=== PATIENT | male | born 1990 | race Caucasian/White ===

== ENCOUNTER → 2018-10-04 10:38 | Outpatient (CLI) | payer OTHER, SELFPAY ==
--- NOTE | 2018-10-04 10:49 | CT_ITS ---
STUDY: CT RIGHT ANKLE WITHOUT CONTRAST REASON FOR EXAM: Male, 27 years old. Displaced fracture of the right lateral malleolus. RADIATION DOSAGE (If Supplied By Facility): CTDIvol = ( 15.35 ) mGy, DLP = ( 403.65 ) mGycm TECHNIQUE: Thin section transaxial imaging of the ankle was obtained, with sagittal and coronal reconstructed images. Individualized dose optimization techniques were used for this CT. COMPARISON: None. FINDINGS: There is a nondisplaced oblique fracture of the distal fibular shaft just proximal to the lateral malleolus. There is good alignment. Normal tibiotalar articulation and talar dome. Normal talus, calcaneus, navicular and cuboid tarsal bones. Normal subtalar, talonavicular and calcaneocuboid articulations. Normal navicular-cuneiform, cuneiform tarsal bones and intercuneiform articulations. Normal tarsometatarsal articulations and visualized metatarsi. Soft tissue swelling. CT/Extremity Lower without Contra IMPRESSION: Nondisplaced oblique fracture of the distal fibula. There is good alignment. Soft tissue swelling. Electronically Signed: Emanuel Reyes, at 11:32 EDT , Service support ,
== END ==
PROVIDERS: Family Provider Family Medicine; PCP Family Medicine; Referring Provider Physician Assistant Surgical; Visit Provider Physician Assistant Surgical
DX: S82.61XA Displaced fracture of lateral malleolus of right fibula, initial encounter for closed fracture (principal)
CPT/HCPCS: 73700

== ENCOUNTER 2018-10-16 07:56 | Day surgery (SDC) | payer OTHER, SELFPAY ==
--- NOTE | 2018-10-08 08:40 | HP.PCM_ITS ---
History and Physical Patient Name: Tru Mercedes : 1990 From: JIGNESH MADDEN PA-C DATE OF SURGERY: 10/16/2018 SCHEDULED PROCEDURE: open reduction internal fixation right ankle with possible syndesmosis repair HISTORY OF PRESENT ILLNESS: Preoperative history and physical exam was performed on October 07, 2018. This is a 27-year-old male who injured his right ankle while playing softball. Patient was seen at the [facility] urgent care in which she was placed in a pneumatic foam walking boot and crutches. Patient's pain can reach as high as a 6/10. He has been requiring Tylenol and ibuprofen for pain control. Patient denies previous injury to the right ankle but does have history of removal of a melanoma over the middle/distal two thirds any years ago. Patient denies any numbness and tingling. Denies any pain at any other sites. Patient does have a medical history pertinent for hypertension and sleep apnea which he uses a CPAP machine. He currently denies chest pain, shortness of breath, fevers chills, recent infections. After discussion, the patient would like to proceed with an open reduction internal fixation right ankle with possible syndesmosis repair. REVIEW OF SYSTEMS: ROS: Const: Denies change in appetite, fever and weight change. CV: Denies chest pain, heart murmur and irregular heartbeat. Resp: Denies cough, pneumonia, shortness of breath, tuberculosis and wheezing. GI: Reports diarrhea and nausea, but denies constipation, heartburn, rectal itching, bloody stools and vomiting. : Denies incontinence. Musculo: Reports leg swelling, but denies pain, trouble walking and weakness. Skin: Denies Raynaud's, history of shingles and tattoo. Neuro: Denies ambulatory dysfunction, dizziness, numbness/tingling and tremor. Psych: Denies anxiety, insomnia and stress. Alistair/Lymph: Denies anemia, bleeding/bruising tendency and past transfusion. Reviewed, no changes. PAST MEDICAL HISTORY: Advance Care Plan: No Advance Directives Effective Date: 10/04/2018 PMH: Medical Problems: High Blood Pressure, Sleep Apnea Accidents: None Surgical Hx: Melanoma removed from RT leg - (2017) Anesthesia Complications: None Assistive Devices: Glasses, Contacts Reviewed, no changes. SOCIAL HISTORY: SH: Marital: .Occupation: Web Marketing Intern.Work Status: [employer], Currently Working.Hand Dominance: Right-handed. Personal Habits: Cigarette Use: Never Smoked Cigarettes.Smokeless Tobacco: Never Used Smokeless Tobacco.E-Cigarette Use: Never used.Alcohol: Daily.Drug Use: Denies Use.Enjoy Exercising: Exercises 1-3 x/month. Reviewed, no changes. VITALS: Ht: 69 Wt: 223lb Wt k.153 BMI: 32.9 BP: 134/76 Pulse: 70 Resp: 16 T: 96.9 T: 36.1C ALLERGIES: No Known Drug Allergy MEDICATIONS: Lisinopril 10 mg 1 by mouth every day, Dicyclomine HCL 10 mg 1 cap before meals & bed time PRE-OP EXAM: General appearance:NORMAL Other: Eyes: Conjunctivae and lids: NORMAL Pupils: ERR Ears, Nose, Mouth, and Throat: NORMAL Other: Inspection of lips, teeth and gums: NORMAL Other: Neck: Examination of neck: no masses noted. Respiratory: Assessment of respiratory effort: NORMAL Other: Auscultation of lungs: clear to auscultation no wheezes, rhonchi or rales. Cardiovascular: Auscultation of heart: regular rate and rhythm, no murmurs, gallops or rubs. Gastrointestinal: Exam of abdomen: soft, nontender, nondistended bowel sounds present. PHYSICAL EXAMINATION: On exam of the right ankle, there is swelling appreciated. Patient has tenderness to palpation along the distal one third of the fibula. He has minimal pain over the medial aspect of the right ankle. There is no pain over the midfoot or metatarsals of the right foot. Patient is able to perform gentle plantar flexion dorsiflexion and wiggle his toes. Sensation intact to saphenous, sural, superficial/deep peroneal, and tibial distributions. Since capillary refill is less than 2 seconds. IMAGING STUDIES: 1. X-rays at [facility] does reveal a minimally displaced comminuted long oblique fracture of the distal fibula Flores C pattern. There is also widening of the medial clear space. There is also irregularity appreciated with x-ray over the medial aspect of the tibia. 2. CT scan at [facility] did not reveal any fracture over the medial aspect of the right ankle at the tibia. Did reveal the long oblique fracture of the distal fibula. IMPRESSION: 1. Right ankle minimally displaced distal fibula comminuted long oblique fracture with medial clear space widening 2. Hypertension 3. Sleep apnea: Currently uses CPAP machine PLAN: Did discuss and review with the patient all treatment options including surgical versus nonsurgical options. Patient does wish to proceed with the above-stated procedure. Potential risks, benefits, and complications of the procedure were discussed in detail including but not limited to , infection, nerve and blood vessel damage, persistent pain, numbness, tingling, paresthesias, blood clot, pulmonary embolism, and requirement for possible further surgery. The patient expressed full understanding and has no further questions for the doctor. Patient does agree to proceed with the above-stated procedure and has signed the surgery consent form. This dictation was created using voice recognition software. Phonetic and/or grammatical errors may exist.. ___ I have re-examined the patient. There are no clinical changes since date of exam. ___ See progress notes for changes. ___ Dictated on admission Date: Time: Signature:
--- NOTE | 2018-10-08 16:41 | EKG12_ITS ---
Test Reason : PRE-OP Blood Pressure : / mmHG Vent. Rate : 070 BPM Atrial Rate : 070 BPM P-R Int : 180 ms QRS Dur : 112 ms QT Int : 386 ms P-R-T Axes : -07 080 052 degrees QTc Int : 416 ms Normal sinus rhythm with sinus arrhythmia Normal ECG Confirmed by STEPHANIE WEST ([id number]), editorial specialist ADOLFO ZULETA ([id number]) on 10/09/2018 2:28:25 PM Referred By: Jhonathan Hoover Confirmed By:STEPHANIE WEST
[2018-10-08 17:19] LABS: Hematocrit 43.5 % (40-54); Hemoglobin 15.7 g/dL (13.0-16.5); Mean Corp Hgb Conc 36.1 g/dL (32-36); Mean Corpuscular Hgb 32.9 pg (27.0-32.0); Mean Corpuscular Volume 91.2 fL (80-94); Platelet Count 284 K/mm3 (150-450); RBC Distribution Width CV 12.1 % (11.6-14.6); RBC Distribution Width SD 40.6 fl (35.1-43.9); Red Blood Count 4.77 M/mm3 (4.6-6.2); White Blood Count 7.6 K/mm3 (4.4-11.0)
[2018-10-08 17:35] LABS: Anion Gap 7 (5-15); BUN 14 mg/dL (7-18); BUN/Creat Ratio 13.9 RATIO (10-20); Chloride 104 mmol/L (98-107); Creatinine, Serum 1.01 mg/dL (0.70-1.30); EST Glomerular Filtration Rate 95 mL/min (>60); Est Glom Filt Rate - Afr Amer 115 mL/min (>60); Glucose 80 mg/dL (74-106); Potassium 3.9 mmol/L (3.5-5.1); Sodium Level 140 mmol/L (136-145)
[2018-10-16] VITALS (7 sets, daily range): BP systolic 135–148; BP diastolic 56–80; PULSE 74–99; RESP 16–18; TEMP 36.2–36.8; O2SAT 94–99; BMI 33.5
[2018-10-16] MEDS: Cefazolin 2 GM in 0.9% Normal Saline 100 ML IV (09:28)
--- NOTE | 2018-10-16 09:28 | RAD_ITS ---
STUDY: X-RAY - RIGHT ANKLE REASON FOR EXAM: Male, 27 years old. ORIF of the distal fibular fracture. TECHNIQUE: 3 view(s) of the ankle were obtained intraoperatively. COMPARISON: None. FINDINGS: Intraoperative fluoroscopic service was provided for open reduction and internal fixation of the oblique distal fibular fracture. There is good alignment. RAD/Ankle min 3 Views IMPRESSION: Intraoperative fluoroscopic services provided for ORIF of the oblique distal fibular fracture. Electronically Signed: Emanuel Reyes, at 15:42 EDT , Service support ,
--- NOTE | 2018-10-16 10:24 | OP.PCM_ITS ---
Report of Operation Date of Procedure: 10/16/18 Pre-Operative Diagnosis: Right SER equivalent ankle fracture with high Flores B distal fibula Post-Operative Diagnosis: Right SER equivalent ankle fracture with high Flores B distal fibula Surgery/Procedure Performed:: Open reduction internal fixation right distal fibula fracture. Stress exam of syndesmosis under fluoroscopy right ankle. Description of Surgical Findings:: We will reduce ankle fracture. Stable syndesmosis. operating systems specialist: Idania Harris Type of Anesthesia:: General Anesthesiologist: Dmitry Rowe Special Medications: 2 g Ancef Estimated Blood Loss (mL): 10 Fluids Replaced: 1 L crystalloid Description of Procedure: On the date of the procedure patient was met in the preoperative area. We went over treatments. We elected to proceed with a surgical intervention. Patient demonstrated understanding and was adequately consented. On the day of the procedure patient's right ankle was marked in the preoperative area. Patient was brought back to the operating room with her transferred to the table in the supine position. Anesthesia assumed control of the C-spine airway and remained controlled throughout the remainder the procedure. Anesthesia was administered. Patient was brought down to the foot of the bed. Bump was placed under the hip and the contralateral leg was secured to the bed. Tourniquet was placed on the right upper thigh and the right lower extremity was prepped in a sterile fashion for surgery. Surgeon scrubbed upon scrubbing the reentered the room. After donning appropriate gowns and gloves the right lower extremity was prepped in a sterile fashion. Incision was marked out. Timeout was called when agreed upon the side, the site, procedure be performed, patient identity and antibiotics given. Incision was taken down through skin sharply. Blunt dissection was taken down through subtenons tissues in order to to protect any neurovascular structures. Once were able to identify the fracture the fracture area was adequately debrided of fracture hematoma. Point reduction clamps were placed on the fracture to reduce the fracture. After reducing the fracture we verified fracture reduction under live x-ray. Once this was done a lag screw was placed in a lag screw by technique design. Once the leg she was placed to clamp was removed and the fracture was stable. At this time live fluoroscopy was used to verify fracture reduction and fixation. Fracture was well reduced. X-rays were taken of the mortise view. External rotation was placed on the ankle and syndesmosis remained stable under stress examination. At this time live x-ray was used to verify placement of 7-hole Synthes plate. Once we are happy with the position once was placed proximally and one screw was placed distally for provisional fixation. We again verified plate fixation and AP and lateral planes. Once were happy with the placement of the plate 2 additional screws were placed proximally distally. Live x-ray was used to verify final fracture reduction. Wound was copiously without normal saline. Fascia was closed with 0 Vicryl. Skin was closed with 2-0 Vicryl final skin closure was done with 3-0 Monocryl and Steri-Strips. Xeroform dressing was placed. Well-padded splint was placed in a neutral position. Patient was awakened by anesthesia and transferred to PACU for recovery. Postoperative plan: Patient will be on aspirin 325 mg daily. Instructed on ice and elevation. Nonweightbearing for total of 6 weeks. At his 2-week postop visit we will transition him to a boot and start range of motion exercises. Grafts/Implants Used: Synthes 7 hole one third tubular plate with lag screw - Complications No intraoperative complications - Admit VTE Documentation VTE Present on Admission: No VTE Mechan Device Prophylaxis: SCD's, Thigh High BRAD Hose VTE Pharm Prophylaxis ordered?: Yes
[2018-10-16] MEDS: Ketorolac 30 MG/ML Syringe IV (11:04)
== END 2018-10-16 12:59 | disposition home or self-care (01) ==
LOC: SDC 07:58 → AC 08:03
PROVIDERS: Family Provider Family Medicine; PCP Family Medicine; Referring Provider Specialist; Visit Provider Specialist
PROC: (CPT 27829; principal; 2018-10-16 11:40)
DX: S82.831A Other fracture of upper and lower end of right fibula, initial encounter for closed fracture (principal); Y93.64 Activity, baseball; G47.30 Sleep apnea, unspecified; I10 Essential (primary) hypertension; Z79.899 Other long term (current) drug therapy; Z85.820 Personal history of malignant melanoma of skin
CPT/HCPCS: 01480; 27829; 36415; 73610; 76000; 80048; 85027; 93005; C1713; J7120; J2405

== ENCOUNTER 2024-12-30 17:09 | Emergency (ER) | payer OTHER, SELFPAY ==
[2024-12-30 17:10] VITALS: BP 143/90; PULSE 75; RESP 16; TEMP 36.6; O2SAT 100; BMI 27.5
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
[2024-12-30] MEDS: Orphenadrine 100 MG Tablet PO (18:50)
[2024-12-30 18:59] VITALS: BP 132/81; PULSE 81; RESP 18; TEMP 36.4; O2SAT 97
== END 2024-12-30 18:59 | disposition home or self-care (01) ==
PROVIDERS: Emergency Provider Emergency Medicine; PCP Family Medicine; Visit Provider Emergency Medicine
DX: S16.1XXA Strain of muscle, fascia and tendon at neck level, initial encounter (principal); S23.9XXA Sprain of unspecified parts of thorax, initial encounter; S06.0XAA Concussion with loss of consciousness status unknown, initial encounter; I10 Essential (primary) hypertension; Z79.899 Other long term (current) drug therapy; V43.52XA Car driver injured in collision with other type car in traffic accident, initial encounter
CPT/HCPCS: 70450; 72125; 72128; 99284; A4216